=== PATIENT | male | born 1975 | race Caucasian/White ===

== ENCOUNTER 2017-06-24 12:48 | Inpatient (IN) | payer MEDICAID, OTHER ==
[~2017-06-24] VITALS: Ht 170.2 cm; Wt 78.5 kg
[2017-06-24] MEDS ORDERED: BENZTROPINE MESYLATE 2 MG/2 ML VIAL IM PRN (16:30)
[2017-06-24] MEDS ORDERED: ALUMINUM/MAGNESIUM/SIMETH 30 ML CUP PO PRN (16:30)
[2017-06-24] MEDS ORDERED: BENZTROPINE MESYLATE 1 MG TAB PO PRN (16:30)
[2017-06-24] MEDS ORDERED: ACETAMINOPHEN 325 MG TAB PO PRN (16:30)
[2017-06-24 18:19] VITALS: BP 149/69; PULSE 60; RESP 18; TEMP 97.4; O2SAT 99
[2017-06-24] MEDS: DULoxetine HCl DR 30 MG CAP PO SCH (21:00)
[2017-06-24] MEDS: GABAPENTIN 300 MG CAP PO SCH (21:00)
[2017-06-24] MEDS: diphenhydrAMINE HCL 50 MG CAP PO PRN (21:55)
[2017-06-24] MEDS: hydrOXYzine HCL 50 MG TAB PO PRN (21:55)
[2017-06-25 06:00] VITALS: BP 120/73; PULSE 57; RESP 18; TEMP 98.2
[2017-06-25 07:02] LABS: AUTOMATED NEUTROPHIL # 4.6 TH/MM3 (1.8-7.7); BASOPHIL % 0.7 % (0.0-2.0); EOSINOPHIL # 0.1 TH/MM3 (0-0.4); EOSINOPHIL % 2.1 % (0.0-4.0); HEMATOCRIT 38.6 % (39.0-51.0); HEMO FLAGS DIFF FINAL; LYMPH % 20.9 % (9.0-44.0); LYMPHOCYTE # 1.4 TH/MM3 (1.0-4.8); MEAN CELL VOLUME 83.3 FL (80.0-100.0); MEAN CORPUSCULAR HEMOGLOBIN 27.9 PG (27.0-34.0); MEAN CORPUSCULAR HGB CONC 33.5 % (32.0-36.0); MONO % 9.2 % (0.0-8.0); NEUT % 67.1 % (16.0-70.0); PLATELET COUNT 352 TH/MM3 (150-450); RED BLOOD COUNT 4.63 MIL/MM3 (4.50-5.90); RED CELL DISTRIBUTION WIDTH 13.5 % (11.6-17.2); WHITE BLOOD COUNT 6.9 TH/MM3 (4.0-11.0)
[2017-06-25 07:35] LABS: ANION GAP 9 MEQ/L (5-15); AST (GOT) 37 U/L (15-37); BICARBONATE 27.8 MEQ/L (21.0-32.0); BLOOD UREA NITROGEN 13 MG/DL (7-18); CHLORIDE 101 MEQ/L (98-107); GLOMERULAR FILTRATION RATE 126 ML/MIN (>89); POTASSIUM 4.3 MEQ/L (3.5-5.1); SODIUM (NA) 138 MEQ/L (136-145)
[2017-06-25 07:47] LABS: ALKALINE PHOSPHATASE 70 U/L (45-117); ALT (GPT) 71 U/L (12-78); HDL CHOLESTEROL 34.8 MG/DL (40.0-60.0); LDL CHOLESTEROL 78 MG/DL (0-99); TOTAL BILIRUBIN ADULT 0.3 MG/DL (0.2-1.0)
[2017-06-25] MEDS: REMOVE OLD PATCH T-DERMAL SCH (09:00)
[2017-06-25] MEDS: NICOTINE 21 MG/24 HR PATCH T-DERMAL SCH (09:00)
[2017-06-25] MEDS ORDERED: DULoxetine HCl DR 30 MG CAP PO SCH (09:00)
[2017-06-25] MEDS: GABAPENTIN 300 MG CAP PO SCH ×2 (09:42→20:58)
[2017-06-25] MEDS ORDERED: oxyCODONE/ACETAMINOPHEN 10 MG/325 MG TAB PO ONE (09:45)
[2017-06-25] MEDS ORDERED: INFLUENZA VIRUS VACCINE (QUADRIVALENT) 0.5 ML SYR IM ONE (10:00)
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
[2017-06-25 12:34] LABS: HEMOGLOBIN A1a 1.1 %; HEMOGLOBIN A1b 0.8 %; HEMOGLOBIN Ao 84.7 %; HEMOGLOBIN LA1C 2.1 %
--- NOTE | 2017-06-25 14:39 | RADRPT ---
EXAM DATE/TIME: 06/25/2017 12:55 [facility] COMPARISON: No previous studies available for comparison. INDICATIONS : Right ankle pain for 1 month; No known injury. MEDICAL HISTORY : None. SURGICAL HISTORY : None. ENCOUNTER: Initial ACUITY: 1 month PAIN SCORE: 5/10 LOCATION: Right ankle. FINDINGS: Three view exam was performed of the right ankle. The bony structures are in normal alignment. No e vidence of fracture, dislocation, or soft tissue swelling. The ankle mortise is intact. No radiopaq ue foreign bodies are seen. Bony mineralization is normal. CONCLUSION: 1. Unremarkable ankle radiographs. Shahzad Singh MD on June 25, 2017 at 14:37 Board Certified Radiologist. This report was verified electronically.
[2017-06-25] MEDS: oxyCODONE/ACETAMINOPHEN 10 MG/325 MG TAB PO PRN ×2 (17:36→23:33)
[2017-06-25 18:00] VITALS: BP 120/60; PULSE 58; RESP 18; TEMP 98.3; O2SAT 97
[2017-06-25] MEDS: DULoxetine HCl DR 30 MG CAP PO SCH (20:57)
[2017-06-25] MEDS: MAGNESIUM HYDROXIDE SUSP 30 ML CUP PO PRN (23:32)
[2017-06-26] MEDS: oxyCODONE/ACETAMINOPHEN 10 MG/325 MG TAB PO PRN ×3 (06:13→18:06)
[2017-06-26 06:49] VITALS: BP 143/73; PULSE 63; RESP 18; TEMP 97.7; O2SAT 97
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
[2017-06-26] MEDS: GABAPENTIN 300 MG CAP PO SCH ×2 (08:52→21:24)
[2017-06-26] MEDS: NICOTINE 21 MG/24 HR PATCH T-DERMAL SCH (08:52)
[2017-06-26] MEDS: REMOVE OLD PATCH T-DERMAL SCH (08:52)
--- NOTE | 2017-06-26 11:35 | HHI.PYPN ---
Subjective Chief Complaint: depressive symptoms along with suicidal ideation Remarks Patient seen for follow-up, chart reviewed. Discussion with nursing staff reported patient noted less distressed today, was apologetic about his irritability yesterday. Patient found sitting in hospital bed, cooperative with interview today. Patient noted to be more engaging and less distressed as patient has have had better pain control with the restart of analgesics. Patient states that he sleeping a little better, appetite is slowly improving, continues to have decreased energy concentration, continues to feel depressed due to his chronic medical issues as well as having vague suicidal ideations. Patient was asked what his 3 reasons to live were patient could not come up with any reason stating "not sure". Patient noted to be dysphoric, with poor eye contact. Mental Status Examination Appearance: Disheveled Consciousness: Alert, Other (appeared to be in distress due to pain) Orientation: Person, Place Motor Activity: Other (not assessed) Speech: Unremarkable Language: Adequate Fund of Knowledge: Inadequate Attention and Concentration: Easily Distracted (due to the pain) Memory: Unremarkable Mood: Angry, Sad Affect: Sad, Other (dysphoric) Thought Process & Associations: Linear Thought Content: Appropriate Hallucination Type: None Delusion Type: None Suicidal Ideation: Yes Suicidal Plan: Yes Suicidal Intention: Yes Homicidal Ideation: No Homicidal Plan: No Homicidal Intention: No Insight: Poor Judgment: Poor Results Vitals/IOs Vital Signs Date Time Temp Pulse Resp B/P (MAP) Pulse Ox O2 Delivery O2 Flow Rate FiO2 06/26/17 06:49 97.7 63 18 143/73 (96) 97 Intake and Output 06/26/17 06/26/17 06/27/17 08:00 16:00 00:00 Intake Total 600 ml Balance 600 ml Assessment & Plan Problem List: (1) Adjustment disorder with depressed mood ICD Codes: F43.21 - Adjustment disorder with depressed mood Assessment & Plan Patient at this time continues to be noted to be depressed with poor engagement in interview with poor eye contact, dysphoric, continues to have suicidal ideations. Will increase duloxetine to 40 mg by mouth daily for depression, continue rest of treatment for now. Continue to encourage patient to maintain personal hygiene and participate in groups and activities while on the unit. Discharge planning in progress. Justification for Cont. Inpt. At risk for further decompensation if at lower level of care. Discharge Planning Patient to be discharged to [facility] if one is acquired or homeless prison. once psychiatrically stable. Ryan Nuñez MD Jun 26, 2017 11:35
--- NOTE | 2017-06-26 13:30 | RADRPT ---
EXAM DATE/TIME: 06/26/2017 13:08 [place] COMPARISON: No previous studies available for comparison. INDICATIONS : Evaluate for for pneumoina,pneumothorax or communicable disease. MEDICAL HISTORY : None. SURGICAL HISTORY : None. ENCOUNTER: Subsequent ACUITY: 2 days PAIN SCORE: 0/10 LOCATION: Bilateral chest FINDINGS: PA and lateral views of the chest demonstrate the lungs to be symmetrically aerated without evidence of mass, infiltrate or effusion. The cardiomediastinal contours are unremarkable. Osseous structure s are intact. CONCLUSION: Normal examination. Bryn Austin MD on June 26, 2017 at 13:29 Board Certified Radiologist. This report was verified electronically.
[2017-06-26 18:05] VITALS: BP 116/66; PULSE 59; RESP 18; TEMP 97.5; O2SAT 96
[2017-06-26] MEDS: hydrOXYzine HCL 50 MG TAB PO PRN (21:24)
[2017-06-26] MEDS: diphenhydrAMINE HCL 50 MG CAP PO PRN (21:24)
[2017-06-26] MEDS: DULoxetine HCl DR 20 MG CAP PO SCH (21:24)
[2017-06-27] MEDS: oxyCODONE/ACETAMINOPHEN 10 MG/325 MG TAB PO PRN ×5 (00:25→21:02)
[2017-06-27 05:42] VITALS: BP 122/73; PULSE 57; RESP 16; TEMP 97.8; O2SAT 98
[2017-06-27] MEDS: NICOTINE 21 MG/24 HR PATCH T-DERMAL SCH (07:53)
[2017-06-27] MEDS: REMOVE OLD PATCH T-DERMAL SCH (07:53)
[2017-06-27] MEDS: GABAPENTIN 300 MG CAP PO SCH ×2 (07:53→21:01)
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
--- NOTE | 2017-06-27 10:34 | HHI.PYPN ---
Subjective Chief Complaint: depressive symptoms along with suicidal ideation Remarks Patient seen for follow-up, chart review. Discussion with the staff states that patient has been very compliant but has been guarded. Patient found lying in hospital bed, cooperative but noted to be withdrawn, and guarded with proposal manager writer. Patient states that he is feeling "tired", reported that he had difficulty sleeping last evening due to his chronic pain. Patient states that his mood has been "alright" but continues report feeling depressed. Patient reports his depression today as 6 out of 10, 10 being at its worst. Patient was hesitant when asked if she was continuing having suicidal ideations and. Patient continues to have vague SI at this time. Patient denies any perceptual disturbances or delusions. Patient noted to be anhedonic, with some alogia, guarded and withdrawn; some psychomotor retardation. Review of Systems Except as stated in HPI: all other systems reviewed are Neg Mental Status Examination Appearance: Disheveled Consciousness: Alert, Other (appeared to be in distress due to pain) Orientation: Person, Place Motor Activity: Other (not assessed) Speech: Unremarkable Language: Adequate Fund of Knowledge: Inadequate Attention and Concentration: Inadequate Memory: Unremarkable Mood: Sad Affect: Sad, Other (dysphoric and withdrawn) Thought Process & Associations: Other (concrete) Thought Content: Appropriate Hallucination Type: None Delusion Type: None Suicidal Ideation: Yes Suicidal Plan: Yes Suicidal Intention: Yes Homicidal Ideation: No Homicidal Plan: No Homicidal Intention: No Insight: Poor Judgment: Poor Results Vitals/IOs Vital Signs Date Time Temp Pulse Resp B/P (MAP) Pulse Ox O2 Delivery O2 Flow Rate FiO2 06/27/17 05:42 97.8 57 16 122/73 (89) 98 Intake and Output 06/27/17 06/27/17 06/28/17 08:00 16:00 00:00 Intake Total 360 ml Balance 360 ml Assessment & Plan Problem List: (1) Adjustment disorder with depressed mood ICD Codes: F43.21 - Adjustment disorder with depressed mood Assessment & Plan Patient at this time noted to be more withdrawn and guarded as well as dysphoric. Patient had recent increase in to duloxetine to 40mg by mouth daily yesterday which she started his first dose today. We will continue current treatment for now and monitor mood and behavior. Patient continues to have vague suicide ideations at this time but also reluctant to engage more freely interview. Patient noted to have some psychomotor retardation secondary to his depression. Continue to encourage patient to maintain personal hygiene and participate in groups and activities. Discharge planning in progress Justification for Cont. Inpt. At risk for further decompensation if at lower level of care Discharge Planning Patient possibly to be discharged to an [facility] if accepted. Ryan Nuñez MD Jun 27, 2017 10:34
[2017-06-27 18:06] VITALS: BP 117/60; PULSE 63; RESP 17; TEMP 98; O2SAT 96
[2017-06-27] MEDS: diphenhydrAMINE HCL 50 MG CAP PO PRN (21:01)
[2017-06-27] MEDS: DULoxetine HCl DR 20 MG CAP PO SCH (21:01)
[2017-06-27] MEDS: hydrOXYzine HCL 50 MG TAB PO PRN (21:02)
[2017-06-28] MEDS: oxyCODONE/ACETAMINOPHEN 10 MG/325 MG TAB PO PRN ×5 (02:58→22:04)
[2017-06-28 06:30] VITALS: BP 116/56; PULSE 53; RESP 16; TEMP 97.8; O2SAT 97
[2017-06-28] MEDS: REMOVE OLD PATCH T-DERMAL SCH (07:25)
[2017-06-28] MEDS: NICOTINE 21 MG/24 HR PATCH T-DERMAL SCH (07:25)
[2017-06-28] MEDS: GABAPENTIN 300 MG CAP PO SCH ×2 (08:06→22:05)
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
--- NOTE | 2017-06-28 14:15 | HHI.PYPN ---
Subjective Chief Complaint: depressive symptoms along with suicidal ideation Remarks Patient seen follow, chart review. Discussion with nursing staff reported patient's has improved mood and denying any suicidality recently. Patient found sitting in hospital chair noted to be somewhat anxious but calm and cooperative. Patient states that his mood has been "nervous" but overall better. Patient states that he has a condo planning about his current life circumstances and states that he would like to get some stability in his life. Patient states that she's had many obstacles and difficulty in the past noted to be tearful speaking about this. Patient states that he is less depressed and having less thoughts of suicide ideation. He reports that he is now attending do more exercises as recommended to him by physical therapy and is trying to do everything possible to get a "fresh start". Mental Status Examination Appearance: Appropriate Consciousness: Alert, Other (appeared to be in distress due to pain) Orientation: Person, Place Motor Activity: Other (not assessed) Speech: Unremarkable Language: Adequate Fund of Knowledge: Inadequate Attention and Concentration: Inadequate Memory: Unremarkable Mood: Sad Affect: Sad, Other (dysphoric but less so today) Thought Process & Associations: Goal directed Thought Content: Appropriate Hallucination Type: None Delusion Type: None Suicidal Ideation: Yes (less) Suicidal Plan: No Suicidal Intention: No Homicidal Ideation: No Homicidal Plan: No Homicidal Intention: No Insight: Poor Judgment: Poor Results Vitals/IOs Vital Signs Date Time Temp Pulse Resp B/P (MAP) Pulse Ox O2 Delivery O2 Flow Rate FiO2 06/28/17 06:30 97.8 53 16 116/56 (76) 97 Intake and Output 06/28/17 06/28/17 06/29/17 08:00 16:00 00:00 Intake Total 550 ml 2160 ml Balance 550 ml 2160 ml Assessment & Plan Problem List: (1) Adjustment disorder with depressed mood ICD Codes: F43.21 - Adjustment disorder with depressed mood Assessment & Plan Patient this time noted to have some improvement in mood noted to be more engaging in interview and noted to have more affect is he was noted to be tearful when speaking about his past. Patient continues to feel depressed but less so, as well as reporting less suicidal ideations now. Patient noted to be responding to current treatment. We'll continue current treatment for now. Discharge planning in progress Justification for Cont. Inpt. At risk for further decompensation if at lower level of care Discharge Planning Patient likely to be discharged to an assisted living facility once psychiatrically stable. Ryan Nuñez MD Jun 28, 2017 14:15
[2017-06-28 18:35] VITALS: BP 131/66; PULSE 63; RESP 18; TEMP 97.6; O2SAT 97
[2017-06-28] MEDS: DULoxetine HCl DR 20 MG CAP PO SCH (21:00)
[2017-06-28] MEDS: hydrOXYzine HCL 50 MG TAB PO PRN (22:04)
[2017-06-28] MEDS: diphenhydrAMINE HCL 50 MG CAP PO PRN (22:04)
[2017-06-29] MEDS: oxyCODONE/ACETAMINOPHEN 10 MG/325 MG TAB PO PRN ×5 (04:16→21:56)
[2017-06-29 07:46] VITALS: BP 115/59; PULSE 52; RESP 18; TEMP 98; O2SAT 95
[2017-06-29] MEDS: NICOTINE 21 MG/24 HR PATCH T-DERMAL SCH (08:26)
[2017-06-29] MEDS: REMOVE OLD PATCH T-DERMAL SCH (08:26)
[2017-06-29] MEDS: GABAPENTIN 300 MG CAP PO SCH ×2 (08:28→20:48)
[2017-06-29] MEDS: MAGNESIUM HYDROXIDE SUSP 30 ML CUP PO PRN (08:41)
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
--- NOTE | 2017-06-29 16:44 | HHI.PYPN ---
Subjective Chief Complaint: depressive symptoms along with suicidal ideation Remarks Patient was seen and case discussed with nursing. Pt describes his history of chronic pain and how it affects his depression. Mood is getting better but he remains depressed, affect blunted. Denies si/hi/ah/vh. Eating and sleeping well , behaving well on the unit. Mental Status Examination Appearance: Appropriate Consciousness: Alert, Other (appeared to be in distress due to pain) Orientation: Person, Place Motor Activity: Other (not assessed) Speech: Unremarkable Language: Adequate Fund of Knowledge: Adequate Attention and Concentration: Adequate Memory: Unremarkable Mood: Sad Affect: Blunt Thought Process & Associations: Goal directed Thought Content: Appropriate Hallucination Type: None Delusion Type: None Suicidal Ideation: No Suicidal Plan: No Suicidal Intention: No Homicidal Ideation: No Homicidal Plan: No Homicidal Intention: No Insight: Poor Judgment: Poor Results Vitals/IOs Vital Signs Date Time Temp Pulse Resp B/P (MAP) Pulse Ox O2 Delivery O2 Flow Rate FiO2 06/29/17 07:46 98.0 52 18 115/59 (77) 95 Intake and Output 06/29/17 06/29/17 06/30/17 08:00 16:00 00:00 Intake Total 720 ml 960 ml Balance 720 ml 960 ml Assessment & Plan Problem List: (1) Adjustment disorder with depressed mood ICD Codes: F43.21 - Adjustment disorder with depressed mood Assessment & Plan Continue current treatment plan Justification for Cont. Inpt. Pt would decompensate in a less restrictive setting Hank Parker DO Jun 29, 2017 16:44
[2017-06-29] MEDS: diphenhydrAMINE HCL 50 MG CAP PO PRN (20:48)
[2017-06-29] MEDS: DULoxetine HCl DR 20 MG CAP PO SCH (20:48)
[2017-06-30] MEDS: oxyCODONE/ACETAMINOPHEN 10 MG/325 MG TAB PO PRN ×5 (03:56→23:26)
[2017-06-30 05:53] VITALS: BP 151/65; PULSE 61; RESP 17; TEMP 98.3; O2SAT 96
[2017-06-30] MEDS: REMOVE OLD PATCH T-DERMAL SCH (08:48)
[2017-06-30] MEDS: NICOTINE 21 MG/24 HR PATCH T-DERMAL SCH (08:49)
[2017-06-30] MEDS: GABAPENTIN 300 MG CAP PO SCH ×2 (08:50→20:55)
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
[2017-06-30] MEDS: MAGNESIUM HYDROXIDE SUSP 30 ML CUP PO PRN (10:26)
[2017-06-30 18:17] VITALS: BP 122/50; PULSE 57; RESP 16; TEMP 98.2; O2SAT 96
[2017-06-30] MEDS: DULoxetine HCl DR 20 MG CAP PO SCH (20:56)
[2017-06-30] MEDS: diphenhydrAMINE HCL 50 MG CAP PO PRN (23:26)
[2017-07-01] MEDS: oxyCODONE/ACETAMINOPHEN 10 MG/325 MG TAB PO PRN ×5 (05:06→19:41)
[2017-07-01 06:17] VITALS: BP 106/54; PULSE 51; RESP 17; TEMP 97.6; O2SAT 100
[2017-07-01] MEDS: GABAPENTIN 300 MG CAP PO SCH ×2 (08:51→21:15)
[2017-07-01] MEDS: REMOVE OLD PATCH T-DERMAL SCH (08:52)
[2017-07-01] MEDS: NICOTINE 21 MG/24 HR PATCH T-DERMAL SCH (08:52)
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
[2017-07-01] MEDS ORDERED: DULoxetine HCl DR 20 MG CAP PO ONE (09:15)
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
--- NOTE | 2017-07-01 13:11 | PD.TTN ---
Patient Problems 1. Discharge planning 2. Medication compliance 3. Knowledge deficit 4. Lack of coping skills Progress Toward Goals Provider Present: Dr. Kavitha Nuñez Provider Input: Per doctor, patient is presenting less depressed, more hopeful with more motivation but continues to have intermittent suicidal ideations. Patients medication will be increase duloxetine to 60 mg by mouth daily for depression. Nurse(s) Present: MICHELLE Carmona Nurse(s) Input: Patient is eating meals and taking his medication, with limited to no group participation Psychiatric Counselors Present: ZAC Benoit Psych Therapist Input: Counselor will fax packages facility packages to [facility], and assist with appropriate dc planning Group Spec/RT/OT/MUÑOZ Present: Derian Verduzco OT Group Spec/RT/OT/MUÑOZ Input: Patient has refused to participate with most groups, and isolates to self Documentation Scribe: ZAC Benoit Sandra LMHC Jul 01, 2017 13:11
--- NOTE | 2017-07-01 15:18 | RADRPT ---
EXAM DATE/TIME: 07/01/2017 14:26 [facility] COMPARISON: CHEST PA & LAT, June 26, 2017, 13:08. INDICATIONS : Short of Breath MEDICAL HISTORY : None. SURGICAL HISTORY : None. ENCOUNTER: Subsequent ACUITY: 2 days PAIN SCORE: 0/10 LOCATION: Bilateral chest FINDINGS: PA and lateral views of the chest demonstrate the lungs to be symmetrically aerated without evidence of mass, infiltrate or effusion. The cardiomediastinal contours are unremarkable. Osseous structure s are intact. The top of an IVC filter is partially seen on the lateral projection. CONCLUSION: No acute disease. Robert Knott Jr., MD on July 01, 2017 at 15:14 Board Certified Radiologist. This report was verified electronically.
[2017-07-01 18:04] VITALS: BP 131/85; PULSE 68; RESP 18; TEMP 97.9; O2SAT 97
[2017-07-01] MEDS ORDERED: DULoxetine HCl DR 20 MG CAP PO SCH (21:00)
[2017-07-02] MEDS: oxyCODONE/ACETAMINOPHEN 10 MG/325 MG TAB PO PRN ×4 (00:29→13:05)
[2017-07-02 06:06] VITALS: BP 119/76; PULSE 59; RESP 16; TEMP 98.3; O2SAT 96
[2017-07-02 06:16] VITALS: RESP 18
[2017-07-02] MEDS: GABAPENTIN 300 MG CAP PO SCH (08:35)
[2017-07-02] MEDS: REMOVE OLD PATCH T-DERMAL SCH (08:37)
[2017-07-02] MEDS: NICOTINE 21 MG/24 HR PATCH T-DERMAL SCH (08:37)
[2017-07-02] MEDS ORDERED: DULO1CAP3 PO (08:56)
[2017-07-02] MEDS ORDERED: GABA600T PO (08:56)
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
== END 2017-07-02 14:00 | disposition home or self-care (01) | DRG 881 ==
LOC: H4EA 15:59
PROVIDERS: ADMIT Student in an Organized Health Care Education/Training Program; ATTEND Student in an Organized Health Care Education/Training Program
DX: F43.21 Adjustment disorder with depressed mood (principal); R45.851 Suicidal ideations; G89.4 Chronic pain syndrome; M79.661 Pain in right lower leg; Z59.0 Homelessness; Z79.899 Other long term (current) drug therapy; V89.2XXA Person injured in unspecified motor-vehicle accident, traffic, initial encounter; Y92.410 Unspecified street and highway as the place of occurrence of the external cause
CPT/HCPCS: 71020; 73610; 80053; 80061; 83036; 84443; 85025; 90686; Q0163; Q2038